=== PATIENT | female | born 1970 | race Caucasian/White ===

== ENCOUNTER → 2017-06-07 | Outpatient (CLI) | payer BC, OTHER ==
[~2017-06-07] MED LIST: PROHANCE 279.3MG/ML 15ML VIAL (A9576) As Ordered ONE; PROHANCE 279.3MG/ML 5ML VIAL (A9576) As Ordered ONE
--- NOTE | 2017-06-10 08:11 | REP ---
MRI brain without and with IV gadolinium: History: Cerebrospinal fluid leak. Lightheadedness. Comparison study is from April 30, 2016. Apparently there is a history of Arnold-Chiari malformation without spina bifida or hydrocephalous. The patient status post ventriculoperitoneal shunting in the past. Technique: Gadolinium enhancement dose of 17 mL of intravenous ProHance. Axial, sagittal and coronal imaging planes are utilized. T1 and T2-weighted sequences include spin-echo, fast spin echo, FLAIR, and diffusion weighted scans. MRI findings: Bony calvarium appears intact. I do not see evidence of a previous craniectomy or tonsillar ectopia. Craniocervical junction and upper cervical cord are unremarkable. Visualized paranasal sinuses are clear. No intraorbital abnormality is seen. The lateral third and fourth ventricles are normal in size and position. There is a linear low T1 high T2 signal intensity tract into the right frontal horn from the frontal calvarium consistent with a previous ventriculostomy shunt placement. No vascular abnormality is seen. Neumann white differentiation pattern is otherwise intact. No extra-axial fluid collection is seen. Diffusion weighted scans show no evidence to suggest acute ischemia. Postcontrast images show enhancement of normal vessels. No abnormal gadolinium enhancement is appreciated. Impression: Linear area of gliosis along the path of the previously placed right frontal ventriculostomy tube. Otherwise negative MRI study of the brain without and with IV contrast . No change in ventricular size. No other change from comparison study. Signed by Parminder Allen MD 06/07/2017 02:56 P
== END ==
LOC: M RAD 13:13
PROVIDERS: ATTEND Physician Assistant
DX: G96.0 Cerebrospinal fluid leak (principal); Q07.02 Arnold-Chiari syndrome with hydrocephalus
CPT/HCPCS: 70553; A9576

== ENCOUNTER → 2018-12-01 | Outpatient (CLI) | payer BC, OTHER ==
--- NOTE | 2018-12-02 10:49 | REP ---
MR BRAIN WITHOUT AND WITH CONTRAST: HISTORY: CSF leak. CONTRAST: ProHance 17.2 mL. COMPARISON: 06/07/2017. A small linear focus of decreased and increased signal intensity on T1 and T2 weighted images respectively is present in the right frontal lobe. This represents gliosis along a previous ventricular shunt tube tract. There is no intraparenchymal hemorrhage, infarct, mass or midline shift. There is no abnormal enhancement. The ventricular system is normal in appearance. There is no extracerebral collection. The sinuses are clear. IMPRESSION:There is a small linear focus of gliosis in the right frontal lobe along a previous ventricular shunt tube tract. Electronically Signed by Tim Javier MD 12/02/2018 10:53 A
== END ==
LOC: M RAD 17:38
PROVIDERS: ATTEND Family Medicine
DX: Q07.00 Arnold-Chiari syndrome without spina bifida or hydrocephalus (principal)
CPT/HCPCS: 70553; A9576

== ENCOUNTER → 2019-02-20 | Outpatient (CLI) | payer BC, OTHER ==
--- NOTE | 2019-02-20 17:11 | REPVR ---
EXAM: MR Lumbar Spine Without Contrast. EXAM DATE/TIME: 02/20/2019 4:15 PM CLINICAL HISTORY: 48 years old, female; Low back pain; Patient HX: Presistant csf leaks w/ new onset of foster's TECHNIQUE: Imaging protocol: Multiplanar magnetic resonance images of the lumbar spine without intravenous contrast. COMPARISON: MRI-Spine, L.S. without con 06/17/2017 8:06 AM FINDINGS: Vertebrae: Degenerative disc disease and facet arthrosis is present throughout the lumbar spine. No acute fracture. Normal morphology. Spinal cord: The tip of the conus terminates at the level of the L2 vertebral body. Normal signal. No cord compression. L1-L2: Mild posterior broad-based disc bulge. No focal disc protrusion or spinal stenosis. L2-L3: No significant disc disease. No significant spinal stenosis. L3-L4: Mild posterior broad-based disc bulge. No focal disc protrusion or spinal stenosis. No nerve root impingement. L4-L5: Mild disc space height loss. Mild posterior broad-based disc protrusion. No focal disc protrusion or nerve root impingement. Minimal anterolisthesis of L4. Bilateral facet arthritis with tiny joint effusions. L5-S1: Mild posterior broad-based disc bulge. No focal disc protrusion or nerve root impingement. No spinal stenosis. Bilateral facet hypertrophy, worse on the right with small right facet joint effusion. Small degenerative subchondral cyst within the left L5 superior articulating facet. S1: Bone marrow edema signal within the right S1 pedicle and superior articulating facet is new compared to the prior examination. While this increased bone marrow signal is likely degenerative in etiology, is indeterminate. A stress injury or other bone lesions, including neoplasm cannot be excluded. Correlate clinically with a history of underlying malignancy. If no underlying history of malignancy is present, then followup MRI is recommended in 6 months. Soft tissues: Unremarkable. IMPRESSION: 1. Degenerative spondylosis of the lumbar spine. 2. No focal disc protrusion, nerve root impingement or spinal stenosis is identified. 3. New focal area of marrow edema signal within the S1 right pedicle and superior articulating facet. While this is likely degenerative in etiology, the finding is indeterminate. A stress injury or other bone lesion including neoplasm cannot be excluded. If no underlying history of malignancy is present, then followup MRI of the lumbar spine is recommended in 6 months. Electronically signed by: Moreno Kaba On 02/20/2019 17:11:06 PM
--- NOTE | 2019-02-20 17:25 | REPVR ---
EXAM: MR Cervical Spine Without Contrast EXAM DATE/TIME: 02/20/2019 4:49 PM CLINICAL HISTORY: 48 years old, female; Neck pain; Patient HX: Presistant csf leaks w/ new onset of foster's TECHNIQUE: Imaging protocol: Multiplanar magnetic resonance images of the cervical spine without contrast. COMPARISON: MRI C-SPINE W/ & W/O CONTRAST - OUTSIDE PRIOR 11/27/2016 8:42 AM FINDINGS: Limitations: This examination is limited secondary to motion artifact. Vertebrae: Degenerative disc disease and facet arthrosis is present throughout the cervical spine. Increased T2 signal within the C5 vertebral body is unchanged. Increase T2 signal within the superior endplate of C6 is slightly less prominent and likely degenerative. Spinal cord: Normal signal. No cord compression. C2-C3: No significant disc disease. No significant spinal stenosis. C3-C4: Posterior disco-osteophytic ridging and bilateral uncovertebral joint hypertrophy, worse on the left. Bilateral neural foraminal narrowing, worse on the left. No spinal stenosis or cord impingement. C4-C5: Mild posterior disco-osteophytic ridging and bilateral uncovertebral joint hypertrophy, worse on the right. Bilateral neural foraminal narrowing, worse on the right. C5-C6: Posterior disco-osteophytic ridging and bilateral uncovertebral joint hypertrophy, worse on the left. Bilateral neural foraminal narrowing. C6-C7: Posterior broad-based disco-osteophytic protrusion, asymmetric to the right which abuts the right anterior surface of the cervical cord. There is minimal increased signal within the anterior aspect of the cervical cord at this level on sagittal STIR image 7 which raises the suspicion for cervical myelopathy. C7-T1: No significant disc disease. No significant spinal stenosis. Soft tissues: Unremarkable. Craniocervical junction: The cervical medullary junction is unremarkable. No cerebellar tonsillar ectopia is present. The fourth ventricle has a normal appearance as visualized. IMPRESSION: 1. Limited examination secondary to motion artifact. 2. Degenerative disc disease and facet arthrosis throughout the cervical spine. 3. Bilateral neural foraminal narrowing as described above. The full extent of foraminal narrowing cannot be accurately determined secondary to the extensive motion artifact on axial sequences. 4. Minimal increased signal on STIR sequences within the anterior aspect of the cervical cord at the level of the C6-C7 disc space, raising the suspicion for cervical myelopathy. Electronically signed by: Moreno Kaba On 02/20/2019 17:25:25 PM
--- NOTE | 2019-02-20 18:09 | REPVR ---
EXAM: MR Thoracic Spine Without Contrast EXAM DATE/TIME: 02/20/2019 4:15 PM CLINICAL HISTORY: 48 years old, female; Pain in thoracic spine; Without myelpathy or radiculopathy; Patient HX: Presistant csf leaks w/ new onset of foster's TECHNIQUE: Imaging protocol: Multiplanar magnetic resonance images of the thoracic spine without contrast. COMPARISON: MRI-Spine,Thoracic without con 06/17/2017 7:40 AM FINDINGS: Vertebrae: A small hemangioma within the T6 vertebral body is unchanged. Thoracic vertebral body morphology and signal is otherwise normal. No fracture is identified. Spinal cord: The thoracic cord size and signal is normal. No thoracic myelopathy is identified. No thoracic spinal stenosis is noted. Discs/Spinal canal/Neural foramina: Degenerative disc disease and facet arthrosis of the lower cervical spine is present. There is mild degenerative disc disease within the thoracic spine and upper lumbar spine with mild disc bulges at T2-T3, T11-T12, T12-L1 and L1-L2. No focal disc protrusion, spinal stenosis, or cord impingement is identified. Soft tissues: Unremarkable. IMPRESSION: Mild degenerative spondylosis of the thoracic spine. Electronically signed by: Moreno Kaba On 02/20/2019 18:09:35 PM
== END ==
LOC: M PLARAD 14:03
PROVIDERS: ATTEND Neurological Surgery
DX: M47.814 Spondylosis without myelopathy or radiculopathy, thoracic region (principal); M51.25 Other intervertebral disc displacement, thoracolumbar region; M50.31 Other cervical disc degeneration, high cervical region; M50.320 Other cervical disc degeneration, mid-cervical region, unspecified level; D18.09 Hemangioma of other sites

== ENCOUNTER → 2020-01-12 | Outpatient (CLI) | payer BC, OTHER ==
--- NOTE | 2020-01-13 01:41 | REP ---
Clinical: Lower back pain. Technique: AP, lateral, bilateral oblique, flexion/extension, and coned-down views of the lumbosacral spine. Findings: Vertebral bodies are intact. No evidence for acute fracture / compression injury. There is a 3 mm grade 1 anterolisthesis at the L4-5 level along with endplate sclerosis and minimal disc space narrowing as well as mild hypertrophic facet changes. Remainder of the examination is relatively age-appropriate. Impression: 1. Grade 1 anterolisthesis with mild spondylolysis at the L4-5 level. Electronically Signed by Hao Daniels MD 01/13/2020 01:33 A
== END ==
LOC: M RAD 18:09
PROVIDERS: ATTEND Neurological Surgery
DX: M43.16 Spondylolisthesis, lumbar region (principal)

== ENCOUNTER → 2020-03-08 | Outpatient (REF) | payer OTHER | LOC: M LAB REF 09:16 | PROVIDERS: ATTEND Dermatology | DX: D23.72 Other benign neoplasm of skin of left lower limb, including hip (principal) ==

== ENCOUNTER → 2020-07-14 | Outpatient (REF) | payer OTHER ==
[~2020-07-14] MED LIST changes: +ADVI200T PO; -PROHANCE 279.3MG/ML 15ML VIAL (A9576) As Ordered ONE; -PROHANCE 279.3MG/ML 5ML VIAL (A9576) As Ordered ONE
[2020-07-14 17:11] LABS: HEMATOCRIT 39.2 % (36.0-47.0); HEMOGLOBIN 12.8 g/dl (12.0-15.5); MEAN CORPUSCULAR HEMOGLOBIN 29.2 pg (27.0-33.0); MEAN CORPUSCULAR HGB CONC 32.7 g/dl (32.0-36.5); MEAN CORPUSCULAR VOLUME 89.5 fl (80.0-96.0); PLATELET COUNT, AUTOMATED 358 10^3/uL (150-450); RED BLOOD COUNT 4.38 10^6/uL (4.00-5.40); WHITE BLOOD COUNT 6.5 10^3/uL (4.0-10.0)
[2020-07-14 17:23] LABS: INR 0.94; PROTHROMBIN TIME 12.8 SECONDS (12.5-14.3)
[2020-07-14 17:35] LABS: BILIRUBIN,TOTAL 0.3 MG/DL (0.2-1.0); CALCIUM LEVEL 9.2 MG/DL (8.5-10.1); CREATININE FOR GFR 1.05 MG/DL (0.55-1.30); GLOMERULAR FILTRATION RATE 58.8 (>51)
[2020-07-14 17:38] LABS: ERYTHROCYTE SEDIMENTATION RATE 11 mm/hr (0-30)
== END ==
LOC: M LABDRAWC 15:48
PROVIDERS: ATTEND Orthopaedic Surgery
DX: M25.551 Pain in right hip (principal)

== ENCOUNTER → 2020-07-15 | Outpatient (CLI) | payer OTHER | LOC: M LABSMTC 14:13 | PROVIDERS: ATTEND Anesthesiology | DX: Z01.812 Encounter for preprocedural laboratory examination (principal); Z20.828 Contact with and (suspected) exposure to other viral communicable diseases ==

== ENCOUNTER → 2020-07-15 | Outpatient (CLI) | payer BC, OTHER ==
[~2020-07-15] MED LIST changes: +ECOT81TA5 PO; +PERC5TAB12 PO
--- NOTE | 2020-07-15 15:07 | ECGEPIP ---
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
== END ==
LOC: M EKG 14:34
PROVIDERS: ATTEND Orthopaedic Surgery
DX: M25.551 Pain in right hip (principal)

== ENCOUNTER 2020-07-20 06:19 | Inpatient (IN) | payer BC, OTHER ==
--- NOTE | 2020-07-18 13:27 | HPE ---
HISTORY AND PHYSICAL DATE OF ADMISSION: 07/20/2020 ATTENDING: Dr. Anastasiia Joy. CHIEF COMPLAINT: Right hip pain and stiffness. HISTORY OF PRESENT ILLNESS: This is a 50-year-old female patient with progressively worsening right hip pain and stiffness. She has failed to improve with conservative management. She has elected for surgery for her continued symptoms. She has consented by Dr. Joy for a right total hip arthroplasty. X-rays of her right hip consistent with collapse of the femoral head that may be consistent with AVN. There are end-stage degenerative changes of the right hip. ALLERGIES: Cipro. CURRENT MEDICATIONS: No prescribed medications. MEDICAL HISTORY: 1. Tarlov cysts. 2. Chiari symptoms. 3. Lumbar degenerative disc disease. 4. Lumbar spondylosis. 5. Symptomatic osteoarthritis of the right hip. 6. Possible AVN of the right hip. 7. Question of rheumatoid arthritis. 8. History of CSF leak secondary to ruptured Tarlov cyst. SURGICAL HISTORY: 1. Cervical fusion. 2. Lumbar decompression, multiple. 3. History of Tarlov cysts that have been sealed with blood patches and fibrin glue. FAMILY HISTORY: Noncontributory. SOCIAL HISTORY: She does not currently smoke. She occasionally uses alcohol. REVIEW OF SYSTEMS: Denies fever or chills. Denies chest pain, shortness of breath, or cough. Denies difficulty breathing. Denies abdominal pain. Denies nausea or vomiting. She has persistent pain with weightbearing activities on the right side. She denies any exposure to COVID-19. Denies any change in her bowel or bladder habits. Denies nausea or vomiting. PHYSICAL EXAMINATION: Physical exam today reveals a large female patient. She ambulates with a limping gait favoring her right side. There is absolutely no external rotation on exam. There is irritable internal rotation. Straight leg raise testing is negative. Skin round the hip is intact. No erythema, edema, or ecchymosis. The calf is soft and nontender to palpation. Neck is supple without adenopathy or JVD. Lungs are clear to auscultation without rales or wheeze. Heart: Regular rate and rhythm. Abdomen: Bowel sounds are present. Height 5 foot 9 inches, weight 185 pounds, temperature 97.1, blood pressure 130/72, respirations 14, pulse 70. LABORATORY DATA: Pro-time 12.8. INR 0.94. Glucose 87, BUN 15, creatinine 1.05, sodium 139, potassium 4.0. Sed rate of 11. WBC count 6.5, RBC count 4.3, hemoglobin 12.8, hematocrit 39.2. Chest x-ray and EKG not present for review. IMPRESSION: Symptomatic osteoarthritis of the right hip with a question of underlying AVN of the right hip. PLAN: She has been consented by Dr. Joy for a right total hip arthroplasty. She was counseled about n.p.o. after midnight and what n.p.o. after midnight means. We discussed NSAIDS, discontinue those five days prior to surgery. It should be noted she did take two Advil today. She understands not to take any further at this point. She understands to be on time. We went over COVID-19 exposure, and she should be self quarantined at this point. Went over pre and postoperative instructions. All her questions were answered. cc: ANASTASIIA JOY MD
[~2020-07-20] VITALS: Ht 175.3 cm; Wt 83.0 kg
[~2020-07-20 06:19] MED LIST changes: -ECOT81TA5 PO; -PERC5TAB12 PO
[2020-07-20] MEDS ORDERED: ceFAZolin SOD 2 GM in IV 1 EA IV ONE (07:00)
[2020-07-20] MEDS ORDERED: PERCOCET 5MG/325MG TAB PO ONE (07:00)
[2020-07-20] MEDS ORDERED: PREGABALIN 75 MG CAP(LYRICA) PO ONE (07:00)
[2020-07-20] MEDS ORDERED: LR 1,000 ML IV ONE (07:00)
[2020-07-20] MEDS ORDERED: CelecoXIB 400 MG CAP PO ONE (07:00)
[2020-07-20] MEDS ORDERED: BUPIVACAINE HCL 0.5% 10ML VIAL As Ordered ONE (07:14)
[2020-07-20] MEDS ORDERED: TRANEXAMIC ACID 100 MG/ML 10ML VIAL As Ordered ONE (07:14)
[2020-07-20] MEDS ORDERED: ceFAZolin 1GM VIAL (J0690 PER 500MG) As Ordered ONE (07:15)
[2020-07-20] MEDS ORDERED: EPINEPHrine INJ 1 MG/ML 1ML AMP As Ordered ONE (07:15)
[2020-07-20] MEDS ORDERED: BUPIVACAINE LIPOSOME/PF 1.3% 20ML VIAL (13.3MG/ML)(EXPAREL)(C9290 PER1MG) As Ordered ONE ×2 (07:15→14:24)
[2020-07-20] MEDS ORDERED: LIDOCAINE 2% 100MG/5ML SDV (FOR ANES.) As Ordered ONE (07:20)
[2020-07-20] MEDS ORDERED: propofoL 200 MG/20 ML VIAL As Ordered ONE (07:20)
[2020-07-20] MEDS ORDERED: MIDAZOLAM INJ 2MG/2ML VIAL (J2250 PER 1MG) As Ordered ONE (07:20)
[2020-07-20] MEDS ORDERED: fentaNYL 100 MCG/2 ML INJECTION (J3010) As Ordered ONE ×2 (07:20→17:28)
[2020-07-20] MEDS ORDERED: MANNITOL IV ONE (09:00)
[2020-07-20] MEDS ORDERED: LIDOCAINE W/EPINEPHRINE 1% 20ML VIAL As Ordered ONE (10:43)
[2020-07-20] MEDS ORDERED: ACETAMINOPHEN 325 MG TAB As Ordered ONE (12:51)
[2020-07-20] MEDS ORDERED: ACETAMINOPHEN TAB 650MG DOSE (2X325MG) PO ONE (13:00)
[2020-07-20] MEDS ORDERED: METOCLOPRAMIDE INJ 10MG/2ML VIAL (J2765 PER 1) As Ordered ONE (14:35)
[2020-07-20] MEDS ORDERED: ROCURONIUM BROMIDE 50 MG/5 ML VIAL As Ordered ONE (14:35)
[2020-07-20] MEDS ORDERED: KETOROLAC 60MG 2ML VIAL As Ordered ONE (14:35)
[2020-07-20] MEDS ORDERED: dexameTHASONE 4 MG/ML 1ML VIAL (J1100 PER 1MG) As Ordered ONE (14:35)
[2020-07-20] MEDS ORDERED: ONDANSETRON 4MG/2ML VIAL As Ordered ONE (14:35)
[2020-07-20] MEDS ORDERED: HYDROmorphone HCL 2 MG/ML 1ML VIAL (J1170) As Ordered ONE (15:49)
[2020-07-20] MEDS: oxyCODONE 5MG TAB PO PRN ×2 (17:28→18:04)
[2020-07-20] MEDS: fentaNYL 100 MCG/2 ML INJECTION (J3010) IV PRN ×4 (17:28→17:45)
[2020-07-20] MEDS ORDERED: oxyCODONE 5MG TAB As Ordered ONE (17:28)
[2020-07-20] MEDS ORDERED: LR 1,000 ML IV SCH ×2 (17:45)
[2020-07-20] MEDS ORDERED: ONDANSETRON 4MG/2ML VIAL IV PRN ×2 (17:45)
[2020-07-20] MEDS ORDERED: ACETAMINOPHEN TAB 650MG DOSE (2X325MG) PO PRN (17:45)
[2020-07-20] MEDS ORDERED: traMADol 50 MG TAB PO PRN (17:45)
[2020-07-20] MEDS ORDERED: PERCOCET 5MG/325MG TAB PO PRN (17:45)
[2020-07-20] MEDS ORDERED: HYDROMORPHONE HCL 0.5 MG/ 0.5 ML SYRINGE (J1170 PER 1) IV PRN ×2 (17:45)
[2020-07-20] MEDS ORDERED: LORazepam 0.5 MG TAB PO PRN (18:00)
[2020-07-20 18:30] VITALS: BP 129/75
--- NOTE | 2020-07-20 18:34 | REP ---
INDICATION: S/P TOTAL RIGHT HIP. COMPARISON: None. TECHNIQUE: Three postoperative views of the right hip performed portably. FINDINGS: There is a total hip arthroplasty with the components in satisfactory position and alignment on all views. IMPRESSION: Right hip total hip arthroplasty. <Electronically signed by Demetri Perkins > 07/20/20 [id number]
[2020-07-20 18:58] VITALS: BP 124/75
[2020-07-20 20:00] VITALS: BP 121/72
[2020-07-20 21:00] VITALS: BP 124/76
[2020-07-20 22:00] VITALS: BP 121/66
[2020-07-20] MEDS: ceFAZolin SOD 2 GM in IV 1 EA IV SCH (23:05)
[2020-07-20] MEDS: PERCOCET 5MG/325MG TAB PO PRN (23:06)
[2020-07-21 02:00] VITALS: BP 109/65
[2020-07-21 06:00] VITALS: BP 110/67
[2020-07-21] MEDS ORDERED: PERC5TAB12 PO (06:17)
[2020-07-21] MEDS ORDERED: ECOT81TA5 PO (06:17)
[2020-07-21] MEDS: ceFAZolin SOD 2 GM in IV 1 EA IV SCH (06:53)
[2020-07-21 06:58] LABS: HEMATOCRIT 29.8 % (36.0-47.0); HEMOGLOBIN 9.6 g/dl (12.0-15.5); MEAN CORPUSCULAR HEMOGLOBIN 29.1 pg (27.0-33.0); MEAN CORPUSCULAR HGB CONC 32.2 g/dl (32.0-36.5); MEAN CORPUSCULAR VOLUME 90.3 fl (80.0-96.0); PLATELET COUNT, AUTOMATED 292 10^3/uL (150-450); WHITE BLOOD COUNT 12.7 10^3/uL (4.0-10.0)
[2020-07-21] MEDS: PROMETHAZINE INJ 25 MG/ML VIAL (J2550) IV PRN ×2 (07:51→22:01)
[2020-07-21] MEDS: ASPIRIN 81 MG ENTERIC TAB PO SCH ×2 (07:53→21:52)
[2020-07-21] MEDS: PERCOCET 5MG/325MG TAB PO PRN ×3 (07:53→21:53)
[2020-07-21] MEDS: MOM 30ML SUSPENSION UDC PO SCH (07:54)
[2020-07-21] MEDS: MIRALAX *UNIT DOSE* 17GM PACKET PO SCH (07:54)
[2020-07-21] MEDS: METAMUCIL (PSYLLIUM) PACKET PO SCH (07:55)
[2020-07-21] MEDS: ADDERALL 5 MG TAB PO SCH (07:55)
[2020-07-21] MEDS ORDERED: CelecoXIB 400 MG CAP PO ONE (09:00)
[2020-07-21 10:00] VITALS: BP 110/67
[2020-07-21 14:00] VITALS: BP 112/70
--- NOTE | 2020-07-21 16:24 | RO ---
OPERATIVE NOTE DATE OF OPERATION: 07/20/2020 PREOPERATIVE DIAGNOSIS: Right hip osteoarthritis and femoral head collapse. POSTOPERATIVE DIAGNOSIS: Right hip osteoarthritis and femoral head collapse. PROCEDURE: Right total hip replacement. SURGEON: Gregg Thomas M.D. ELEVATOR TROUBLESHOOTER: Mark Blanc PA-C ANESTHESIA: General ANESTHESIOLOGIST: Dr. Ramos ESTIMATED BLOOD LOSS: Less than 200 mL, replaced with crystalloid. COMPLICATIONS: No complications. INDICATIONS FOR SURGERY: Progressive discomfort in the right hip interfering with activities of daily living, radiographic evidence of arthritic changes including lateralization of the femoral head, obliteration of joint space and cystic change. The patient has elected for operative intervention. Consents were reviewed in detail including a mayur discussion of pathology involved, the procedure proposed, alternatives including doing nothing, the risks including but not limited to pain, failure, infection, bleeding, blood loss, incomplete relief of symptoms, need for additional surgery, dislocation or other issues. The patient agrees to proceed with surgery. COMPONENTS USED: Included DePuy [place] system, ceramic femoral head 36 mm, ALTRX liner, 36 mm, 54 acetabular shell, size 6 femoral component. Neck length is +5. OPERATIVE COURSE: Identified in the holding area, site and side verified. There were questions about whether or not the patient might have intraocular pressure and Anesthesia coordinated a consultation with ophthalmology. After ophthalmology made recommendations, we proceeded with the surgery. The anesthesia was done under general anesthesia because of the patient's history of multiple spontaneous dural leaks requiring blood patches. Once anesthesia was administered, she was positioned in the lateral decubitus position for exposure of right hip arthroplasty on the [place] positioner. Once I and the miller head wet process were comfortable with the patient positioning, she was sterilely prepped and draped in the usual fashion. Next, I stood on the patient's posterior, Mr. Blanc on the patient's anterior. The incision was outlined with a marking pen over the greater trochanter for a modified Hardinge approach. The incision was infiltrated with 1/4% Marcaine with epinephrine. The incision was approximately 12 cm long made with a 10-blade knife, followed down through skin and subcuticular tissues to the lateral fascia. The lateral fascia was opened using a Allen scissor, exposing the abductor mechanism. The abductor mechanism was split at the anterior one-third position and dissection was continued, splitting the medius, minimus and hip capsule. The abductor mechanism was then tagged with a retention suture and I then released the anterior aspect, leaving a cuff of tissue for later repair. The vastus lateralis was split with the hot knife. Dissection continued, releasing the hip capsule and releasing the reflected head of the vastus. I was then able to dislocate the femoral head using the hook with Mr. Blanc assisting with leg positioning. Next, the femoral canal was then entered with the canal entering reamer followed by the canal finding reamer, followed by the lateralizing reamer. We then utilized conical reamers through a 6-7. Next, a template was applied. The femoral neck cut was made with an oscillating saw one fingerbreadth from the lesser trochanter. The femoral head was removed. The femoral head was grossly deformed with osteophytes. Next, attention was turned to the acetabulum. Anterior and posterior retractors were placed. Pulvinar/redundant capsule and transverse acetabular ligament were removed. The floor of the acetabulum was cleared. The labrum was removed using the hot knife. Once this was accomplished, pulse lavage irrigation was accomplished and TXA was placed in the wound as well as the femoral canal. Next, hemispherical reamers were then utilized to ream the acetabulum to a size 53. I trialed the size 53, 54 which fit appropriately. Next, pulse lavage irrigation was accomplished. Non-trial acetabulum was implanted using the targeting device. Next, we verified we were at the floor of the acetabulum. Douglas hole eliminator utilized. ALTRX liner was implanted, tamped into place, verified that it was secure. Next, attention was turned to the femoral canal. Broaches through a size 6 broach were utilized. Size 6 was definitely the largest broach applicable here. Next, we trialed off of a size 6, a standard, +5, 36 mm femoral head. It was reduced. The hip was stable in flexion with internal rotation as well as external rotation in extension and soft tissue tension was appropriate. Next the hip was dislocated. Trial component was removed. Irrigation, pulse lavage was accomplished. Exparel solution was injected around the hip capsule for perioperative pain management and TXA was again allowed to stand. Next, the non-trial femoral component was implanted. The non-trial femoral head was implanted. The hip was reduced. Next, we again placed the hip through a range of motion and again the hip was stable. Kaelyn Jayashree then assisted with retractors and I reapproximated the hip capsule and minimus tissue. I then reapproximated the abductor mechanism using interrupted stitch as well as using the retention to pull it into place. Next, we then reapproximated the vastus lateralis with a running stitch, the lateral fascia with interrupted as well as Stratafix stitch, the deep dermis with buried interrupted stitch followed by Prineo dressing applied. Next, the patient was then able to be moved to the hospital bed, extubated, moved to the recovery room in good condition. For further details, please refer to the medical record. Kaelyn Jayashree participated in the entirety of this case.
[2020-07-21 21:00] VITALS: BP 111/71
[2020-07-22 05:32] VITALS: BP 121/79
[2020-07-22] MEDS: PERCOCET 5MG/325MG TAB PO PRN ×2 (06:48→12:42)
[2020-07-22 07:00] LABS: HEMATOCRIT 29.1 % (36.0-47.0); HEMOGLOBIN 9.4 g/dl (12.0-15.5); MEAN CORPUSCULAR HEMOGLOBIN 29.5 pg (27.0-33.0); MEAN CORPUSCULAR HGB CONC 32.3 g/dl (32.0-36.5); MEAN CORPUSCULAR VOLUME 91.2 fl (80.0-96.0); PLATELET COUNT, AUTOMATED 252 10^3/uL (150-450); RED BLOOD COUNT 3.19 10^6/uL (4.00-5.40); WHITE BLOOD COUNT 8.1 10^3/uL (4.0-10.0)
[2020-07-22] MEDS: ADDERALL 5 MG TAB PO SCH (09:00)
[2020-07-22] MEDS: MOM 30ML SUSPENSION UDC PO SCH (09:01)
[2020-07-22] MEDS: ASPIRIN 81 MG ENTERIC TAB PO SCH (09:01)
[2020-07-22] MEDS: METAMUCIL (PSYLLIUM) PACKET PO SCH (09:01)
[2020-07-22] MEDS: MIRALAX *UNIT DOSE* 17GM PACKET PO SCH (09:01)
[2020-07-22 14:00] VITALS: BP 119/76
--- NOTE | 2020-07-25 09:55 | DSES ---
DISCHARGE SUMMARY DATE OF ADMISSION: 07/20/2020 DATE OF DISCHARGE: 07/22/2020 ADMITTING DIAGNOSIS: Osteoarthritis of the right hip and femoral head collapse on the right side. OTHER DIAGNOSES INCLUDE: 1. Tarlov cyst. 2. Chiari symptoms. 3. Lumbar degenerative disc disease. 4. Symptomatic osteoarthritis of the right hip. 5. Question of rheumatoid arthritis. DISCHARGE DIAGNOSES: 1. Osteoarthritis right hip. 2. Collapse of the right femoral head, status post right total hip arthroplasty. OPERATION PERFORMED: Right total hip arthroplasty. HISTORY: This is a 50-year-old female patient with progressively worsening right hip pain and stiffness. She failed to improve with conservative management. Due to the collapse of her head and underlying degenerative changes. She is admitted for elective hip replacement on the right side. HOSPITAL COURSE: The patient was admitted on the day of surgery and underwent a right total hip arthroplasty, which was without complications and well tolerated by the patient. On the day of discharge, she was weightbearing as tolerated in her right lower extremity. Her pain will be controlled with oral pain medications. She can resume her preoperative medications and diet. She was given instructions including, but not limited to wound monitoring and activity limitations. She is to follow up in our office in 10 to 14 days for surgical follow up. Please refer to the medical record for further details. Gregg Thomas MD
== END 2020-07-22 16:53 | disposition home health service (06) | DRG 301 ==
LOC: M OR 06:19 → M MS5PR 18:20
PROVIDERS: ADMIT Orthopaedic Surgery; ATTEND Orthopaedic Surgery
PROC: 0SR904Z Replacement of Right Hip Joint with Ceramic on Polyethylene Synthetic Substitute, Open Approach (ICD-10-PCS; principal; 2020-07-20 07:30)
DX: M17.11 Unilateral primary osteoarthritis, right knee (principal); G96.191 Perineural cyst; M47.816 Spondylosis without myelopathy or radiculopathy, lumbar region; R26.89 Other abnormalities of gait and mobility; M51.36 Other intervertebral disc degeneration, lumbar region; Z98.1 Arthrodesis status; Z88.1 Allergy status to other antibiotic agents; Z79.899 Other long term (current) drug therapy

== ENCOUNTER → 2021-09-27 | Outpatient (CLI) | payer BC, OTHER ==
[~2021-09-27] MED LIST changes: +ECOT81TA5 PO; +PERC5TAB12 PO
== END ==
LOC: M RAD 09:45
PROVIDERS: ATTEND Orthopaedic Surgery
DX: M25.551 Pain in right hip (principal)
CPT/HCPCS: 78315; A9503

== ENCOUNTER → 2025-02-17 | Outpatient (REF) | payer BC ==
[2025-02-17 18:19] LABS: BASO # 0.1 10^3/uL (0.0-0.2); BASO % 1.4 % (0.0-1.0); EOS # 0.2 10^3/uL (0.0-0.5); EOS % 2.5 % (0.0-3.0); LYMPH # 2.0 10^3/uL (1.5-5.0); LYMPH % 33.3 % (24.0-44.0); MONO # 0.5 10^3/uL (0.0-0.8); MONO % 7.8 % (2.0-8.0); NEUTROPHILS # 3.2 10^3/uL (1.5-8.5); NEUTROPHILS % 54.8 % (36.0-66.0); PLATELET COUNT, AUTOMATED 342 10^3/uL (150-450)
[2025-02-17 18:23] LABS: ALT/SGPT 20 U/L (7.0-40); AST/SGOT 22 U/L (<34); CALCIUM LEVEL 10.0 MG/DL (8.5-10.1); CARBON DIOXIDE LEVEL 27 MMOL/L (20-31); CHLORIDE LEVEL 103 MMOL/L (98-107); CHOLESTEROL LEVEL 243 MG/DL (<200); CHOLESTEROL RISK RATIO 3.63 (<5); CREATININE FOR GFR 1.04 MG/DL (0.55-1.30); GLOMERULAR FILTRATION RATE 63.5 (>51); IRON (FE) 79 UG/DL (50-170); LDL CHOLESTEROL 152.2 MG/DL (<100); NON-HDL-C 176.2 MG/DL; PERCENT SATURATION 22.8 % (13.2-45.0); POTASSIUM SERUM 4.4 MMOL/L (3.5-5.1); SODIUM LEVEL 141 MMOL/L (136-145); TRIGLYCERIDES LEVEL 120 MG/DL (<150)
[2025-02-17 18:25] LABS: TOTAL 25(OH) VITAMIN D 59.1 NG/ML (20.0-100.0)
[2025-02-17 18:28] LABS: VITAMIN B12 LEVEL 571 PG/ML (211-911)
[2025-02-17 18:43] LABS: ESTIMATED AVERAGE GLUCOSE 97.0 MG/DL (60-110)
== END ==
LOC: M SFHCCLAY 09:35
PROVIDERS: ATTEND Student in an Organized Health Care Education/Training Program
DX: Z00.00 Encounter for general adult medical examination without abnormal findings (principal); E78.00 Pure hypercholesterolemia, unspecified

== ENCOUNTER → 2025-05-03 | Outpatient (CLI) | payer OTHER | LOC: M RAD 14:49 | PROVIDERS: ATTEND Student in an Organized Health Care Education/Training Program | DX: Z12.2 Encounter for screening for malignant neoplasm of respiratory organs (principal); F17.210 Nicotine dependence, cigarettes, uncomplicated ==